=== PATIENT | male | born 1975 | race Caucasian/White ===

== ENCOUNTER 2017-06-11 12:07 | Emergency (ER) | payer OTHER ==
[~2017-06-11] VITALS: Ht 175.2 cm; Wt 102.1 kg
[~2017-06-11 12:07] MED LIST: ANTIVERT/2525 MG PO; VICODIN 500 MG-1 TAB PO
[2017-06-11] MEDS ORDERED: CEPHALEXIN500 M1 PO (15:02)
== END 2017-06-11 15:12 | disposition home or self-care (01) ==
LOC: ED 12:07
DX: S60.222A Contusion of left hand, initial encounter (principal); S60.512A Abrasion of left hand, initial encounter; W55.12XA Struck by horse, initial encounter; Y93.89 Activity, other specified; Y92.69 Other specified industrial and construction area as the place of occurrence of the external cause; Y99.9 Unspecified external cause status

== ENCOUNTER 2018-09-16 17:31 | Emergency (ER) | payer OTHER ==
[~2018-09-16] VITALS: Wt 98.9 kg
[~2018-09-16 17:31] MED LIST changes: +CEPHALEXIN500 M1 PO
== END 2018-09-16 20:10 | disposition home or self-care (01) ==
LOC: ED 17:31
DX: S62.644A Nondisplaced fracture of proximal phalanx of right ring finger, initial encounter for closed fracture (principal); S60.221A Contusion of right hand, initial encounter; S09.90XA Unspecified injury of head, initial encounter; W55.12XA Struck by horse, initial encounter; Y93.89 Activity, other specified; Y92.89 Other specified places as the place of occurrence of the external cause; Y99.8 Other external cause status